=== PATIENT | female | born 2000 | race Caucasian/White ===

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

== ENCOUNTER 2022-01-13 22:15 | Emergency (ER) | payer SELFPAY ==
[2022-01-13] MEDS ORDERED: Ketorolac 30 MG/ML SDV IM ONE (23:56)
== END 2022-01-14 00:59 | disposition home or self-care (01) ==
LOC: JD.ED 22:15
DX: R10.30 Lower abdominal pain, unspecified (principal)
CPT/HCPCS: 36415; 74019; 80053; 81001; 83690; 83735; 84702; 85025; 86140; 96372; 99284; J1885

== ENCOUNTER 2022-01-16 15:56 | Emergency (ER) | payer SELFPAY ==
[2022-01-16] MEDS ORDERED: hydrOXYzine HCl 50 MG Tab PO ONE (16:55)
== END 2022-01-16 19:02 | disposition other institution (70) ==
LOC: JD.ED 15:56
DX: S51.812A Laceration without foreign body of left forearm, initial encounter (principal); F32.9 Major depressive disorder, single episode, unspecified; E66.9 Obesity, unspecified; Z68.43 Body mass index [BMI] 50.0-59.9, adult; Z86.16 Personal history of COVID-19; W26.8XXA Contact with other sharp object(s), not elsewhere classified, initial encounter
CPT/HCPCS: 99284; A9270; 99283

== ENCOUNTER 2022-02-05 19:46 | Emergency (ER) | payer SELFPAY ==
[2022-02-05] MEDS ORDERED: Lactated Ringers 1,000 ML IV ONE (21:06)
[2022-02-05] MEDS ORDERED: Ketorolac 15 MG/ML SDV IVPUSH ONE (21:26)
[2022-02-05] MEDS ORDERED: Cephalexin 500 MG Cap PO ONE (23:39)
== END 2022-02-05 23:55 | disposition home or self-care (01) ==
LOC: JD.ED 19:46
DX: N39.0 Urinary tract infection, site not specified (principal); E66.9 Obesity, unspecified; Z68.43 Body mass index [BMI] 50.0-59.9, adult; Z86.16 Personal history of COVID-19; Z79.899 Other long term (current) drug therapy
CPT/HCPCS: 36415; 74176; 80053; 81001; 81025; 83605; 85025; 96374; 99284; A9270; J1885; J7120

== ENCOUNTER 2022-02-07 15:25 | Emergency (ER) | payer SELFPAY ==
[2022-02-07 17:08] LABS: ACETAMINOPHEN 0 ug/mL (10-30)
== END 2022-02-07 21:30 ==
LOC: JD.ED 15:25
DX: F32.89 Other specified depressive episodes (principal); E66.9 Obesity, unspecified; Z68.43 Body mass index [BMI] 50.0-59.9, adult; Z86.16 Personal history of COVID-19; Z20.822 Contact with and (suspected) exposure to COVID-19
CPT/HCPCS: 36415; 80053; 80143; 80179; 80306; 80307; 81001; 84703; 85025; 87086; 99285; U0002

== ENCOUNTER 2022-02-17 18:37 | Emergency (ER) | payer SELFPAY ==
[2022-02-17] MEDS ORDERED: Acetaminophen 325 MG Tab PO ONE (19:40)
[2022-02-17] MEDS ORDERED: Ketorolac 15 MG/ML SDV IM ONE (19:40)
== END 2022-02-17 20:40 | disposition home or self-care (01) ==
LOC: JD.ED 18:37
DX: S06.0X0A Concussion without loss of consciousness, initial encounter (principal); E66.9 Obesity, unspecified; Z68.43 Body mass index [BMI] 50.0-59.9, adult; Z86.16 Personal history of COVID-19; Z79.899 Other long term (current) drug therapy; W10.9XXA Fall (on) (from) unspecified stairs and steps, initial encounter
CPT/HCPCS: 70450; 96372; 99283; A9270; J1885

== ENCOUNTER 2022-03-19 21:43 | Emergency (ER) | payer SELFPAY | END 2022-03-19 22:49 | disposition home or self-care (01) | LOC: JD.ED 21:43 | DX: S93.401A Sprain of unspecified ligament of right ankle, initial encounter (principal); Z86.16 Personal history of COVID-19; X50.1XXA Overexertion from prolonged static or awkward postures, initial encounter | CPT/HCPCS: 73610-26-RT; 73610-RT; 73630-26-RT; 73630-RT; 99283 ==

== ENCOUNTER 2022-03-25 18:53 | Emergency (ER) | payer SELFPAY | END 2022-03-25 20:28 | disposition home or self-care (01) | LOC: JD.ED 18:53 | DX: N91.0 Primary amenorrhea (principal); R11.2 Nausea with vomiting, unspecified; Z86.16 Personal history of COVID-19 | CPT/HCPCS: 81025; 99281; 99284 ==

== ENCOUNTER 2022-04-14 00:43 | Emergency (ER) | payer SELFPAY | END 2022-04-14 01:45 | disposition home or self-care (01) | LOC: JD.ED 00:43 | DX: S51.802A Unspecified open wound of left forearm, initial encounter (principal); E66.9 Obesity, unspecified; Z68.30 Body mass index [BMI] 30.0-30.9, adult; Z86.16 Personal history of COVID-19; W26.8XXA Contact with other sharp object(s), not elsewhere classified, initial encounter | CPT/HCPCS: 99282; 99284 ==

== ENCOUNTER 2022-04-15 21:47 | Emergency (ER) | payer MEDICAID ==
[2022-04-15] MEDS ORDERED: diphenhydrAMINE 50 MG/ML SDV IVPUSH ONE (22:16)
[2022-04-15] MEDS ORDERED: Ketorolac 30 MG/ML SDV IVPUSH ONE (22:16)
[2022-04-15] MEDS ORDERED: Sodium Chloride 0.9% 10 ML Syringe FLUSH PRN (22:16)
[2022-04-15] MEDS ORDERED: Ondansetron 4 MG/2 ML SDV IVPUSH ONE (22:16)
[2022-04-15] MEDS ORDERED: Sodium Chloride 0.9% 1,000 ML IV STA (22:16)
== END 2022-04-15 23:26 | disposition home or self-care (01) ==
LOC: JD.ED 21:47
DX: G43.909 Migraine, unspecified, not intractable, without status migrainosus (principal); E66.9 Obesity, unspecified; Z68.43 Body mass index [BMI] 50.0-59.9, adult; Z86.16 Personal history of COVID-19; Z20.822 Contact with and (suspected) exposure to COVID-19
CPT/HCPCS: 36415; 80053; 85025; 87635; 96361; 96374; 96375; 99284; J1200; J1885; J2405; J3490; J7030; U0002